=== PATIENT | female | born 1980 | race American Indian/Alaskan Native ===

== ENCOUNTER 2016-12-01 09:43 | Emergency (ER) | payer SELFPAY ==
[2016-12-01 09:47] VITALS: BP 135/86; PULSE 83; TEMP 98; O2SAT 99; BMI 44.2
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
== END 2016-12-01 12:04 | disposition home or self-care (01) ==
LOC: H.ER 09:43
DX: J02.9 Acute pharyngitis, unspecified (principal)

== ENCOUNTER 2016-12-18 23:27 | Emergency (ER) | payer OTHER ==
[2016-12-18 23:28] VITALS: BMI 44.2
[2016-12-18 23:48] VITALS: BP 138/67; PULSE 76; RESP 18; TEMP 98.1; O2SAT 98
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
== END 2016-12-19 00:50 | disposition home or self-care (01) ==
LOC: H.ER 23:27
DX: M54.9 Dorsalgia, unspecified (principal); V43.62XA Car passenger injured in collision with other type car in traffic accident, initial encounter; V88.6XXA Person injured in collision between railway train or railway vehicle and car, nontraffic, initial encounter

== ENCOUNTER 2017-10-19 10:40 | Emergency (ER) | payer MEDICAID, OTHER ==
[2017-10-19 10:58] VITALS: BP 123/77; PULSE 82; RESP 20; TEMP 98.5; O2SAT 100; BMI 43.5
--- NOTE | 2017-10-19 12:07 | ED PDOC ---
Lower Extremity Pain/Injury Time Seen by Provider: 10/19/17 11:37 Chief Complaint (Nursing): Lower Extremity Problem/Injury Chief Complaint (Provider): Left ankle pain History Per: Patient History/Exam Limitations: no limitations Onset/Duration Of Symptoms: Days (x1) Current Symptoms Are (Timing): Still Present Additional Complaint(s): Angela Guadarrama is a 36 year old female, with no significant past medical history, who presents to the emergency department complaining of left ankle pain onset since yesterday. Patient reports she twisted her left ankle while skating. She was able to ambulate with pain. She denies any other injuries or medical complaints. PMD: None provided. - Ankle/Foot Description Of Injury: Twisted Past Medical History Reviewed: Historical Data, Nursing Documentation, Vital Signs Vital Signs: Last Vital Signs Temp 98.5 F 10/19/17 10:49 Pulse 82 10/19/17 10:49 Resp 20 10/19/17 10:49 BP 123/77 10/19/17 10:49 Pulse Ox 100 10/19/17 10:49 - Medical History PMH: No Chronic Diseases Denies: Chronic Kidney Disease - Surgical History Surgical History: No Surg Hx - Family History Family History: States: No Known Family Hx - Immunization History Hx Tetanus Toxoid Vaccination: No Hx Influenza Vaccination: No Hx Pneumococcal Vaccination: No - Home Medications Home Medications: Ambulatory Orders Medication Instructions Recorded Amoxicillin [Amoxil 500 mg Cap] 500 mg PO BID #20 cap 12/01/16 Benzonatate [Tessalon Perles] 100 mg PO BID #20 sgl 12/01/16 Naproxen [Naprosyn] 500 mg PO BID PRN #15 tablet 10/19/17 - Allergies Allergies/Adverse Reactions: Allergies Allergy/AdvReac Type Severity Reaction Status Date / Time No Known Allergies Allergy Verified 05/02/14 13:44 Review of Systems ROS Statement: Except As Marked, All Systems Reviewed And Found Negative Musculoskeletal: Positive for: Foot Pain (left ankle) Physical Exam - Reviewed Nursing Documentation Reviewed: Yes Vital Signs Reviewed: Yes - Physical Exam Appears: Positive for: Well, Non-toxic, No Acute Distress Head Exam: Positive for: ATRAUMATIC, NORMOCEPHALIC Skin: Positive for: Normal Color, Warm, Dry Eye Exam: Positive for: Normal appearance Neck: Positive for: Painless ROM Respiratory: Negative for: Respiratory Distress Pulses-Dorsalis Pedis (L): 2+ Pulses-Dorsalis Pedis (R): 2+ Extremity: Positive for: Normal ROM (Lower extremities), Tenderness (to lateral and medial malleolus. Positive edema, sensation intact). Negative for: Deformity (No obvious deformity to left ankle) Neurologic/Psych: Positive for: Alert, Oriented. Negative for: Motor/Sensory Deficits - ECG O2 Sat by Pulse Oximetry: 100 (RA) Pulse Ox Interpretation: Normal Medical Decision Making Medical Decision Making: Initial Impression: Left ankle injury Initial Plan: --Urine --Tylenol 325mg tab 650 mg PO --Motrin tab 600 mg PO --Ankle left 3 views routine [RAD] --Foot left 3 views routine [RAD] --Reevaluation Accession No. : [id number] Patient Name / ID : JULIAN YUN / [id number] Exam Date : 10/19/2017 12:05:37 ( Approved ) Study Comment : Sex / Age : F / 36Y Creator : Phillip Mcnamara MD Dictator : Phillip Mcnamara MD Change Lead : Flame Hardening Machine Setter : Phillip Mcnamara MD Approver2 : Report Date : 10/19/2017 15:18:44 My Comment : PROCEDURE: Left Ankle Radiographs. HISTORY: Twisting injury COMPARISON: 07/01/2010 right ankle radiographs FINDINGS: BONES: Normal. No fracture. JOINTS: Normal. No osteoarthritis. Ankle mortise maintained. Talar dome intact SOFT TISSUES: Normal. OTHER FINDINGS: None. IMPRESSION: No acute findings related to/accounting for the clinical presentation. No significant interval change compared to the prior examination(s). Accession No. : [id number] Patient Name / ID : JULIAN YUN / [id number] Exam Date : 10/19/2017 12:09:26 ( Approved ) Study Comment : Sex / Age : F / 36Y Creator : Phillip Mcnamara MD Dictator : Phillip Mcnamara MD Change Lead : Flame Hardening Machine Setter : Phillip Mcnamara MD Approver2 : Report Date : 10/19/2017 16:57:39 My Comment : PROCEDURE: Left Foot Radiographs. HISTORY: Twisting injury COMPARISON: None. FINDINGS: BONES: Normal. No fracture. JOINTS: Normal. SOFT TISSUES: Normal. OTHER FINDINGS: None. IMPRESSION: No acute findings related to/accounting for the clinical presentation. Scribe Attestation: Documented by Jaret Evans, acting as a scribe for Suzie Bonilla MD Provider Scribe Attestation: All medical record entries made by the Scribe were at my direction and personally dictated by me. I have reviewed the chart and agree that the record accurately reflects my personal performance of the history, physical exam, medical decision making, and the department course for this patient. I have also personally directed, reviewed, and agree with the discharge instructions and disposition. Disposition - Clinical Impression Clinical Impression: Ankle sprain - Disposition Referrals: [facility] [[facility]] Disposition: Routine/Home Disposition Time: 14:35 Condition: STABLE Prescriptions: Naproxen [Naprosyn] 500 mg PO BID PRN #15 tablet PRN Reason: Pain, Moderate (4-7) Instructions: Ankle Sprain, How to Use Crutches Forms: [facility] (H[place]er), [facility] ED School/Work Excuse
--- NOTE | 2017-10-19 15:20 | RAD ---
PROCEDURE: Left Ankle Radiographs. HISTORY: Twisting injury COMPARISON: 07/01/2010 right ankle radiographs FINDINGS: BONES: Normal. No fracture. JOINTS: Normal. No osteoarthritis. Ankle mortise maintained. Talar dome intact SOFT TISSUES: Normal. OTHER FINDINGS: None. IMPRESSION: No acute findings related to/accounting for the clinical presentation. No significant interval change compared to the prior examination(s). Concordant results with the preliminary interpretation rendered by the emergency department physician procedure.
--- NOTE | 2017-10-19 16:59 | RAD ---
PROCEDURE: Left Foot Radiographs. HISTORY: Twisting injury COMPARISON: None. FINDINGS: BONES: Normal. No fracture. JOINTS: Normal. SOFT TISSUES: Normal. OTHER FINDINGS: None. IMPRESSION: No acute findings related to/accounting for the clinical presentation. Concordant results with the preliminary interpretation rendered by the emergency department physician procedure.
== END 2017-10-19 14:54 | disposition home or self-care (01) ==
LOC: H.ER 10:40
DX: S93.402A Sprain of unspecified ligament of left ankle, initial encounter (principal); X50.1XXA Overexertion from prolonged static or awkward postures, initial encounter; Y93.59 Activity, other involving other sports and athletics played individually

== ENCOUNTER 2017-12-10 19:31 | Emergency (ER) | payer MEDICAID ==
[2017-12-10 19:31] VITALS: BMI 43.5
[2017-12-10 19:39] VITALS: TEMP 99.5; O2SAT 97
[2017-12-10] MEDS ORDERED: Tdap Vaccine 0.5 ml Vial (10-64 yrs) IM ONE (20:35)
[2017-12-10] MEDS ORDERED: PROPARACAINE/FLUORESCEIN SOD 100 DROP/5 ML BOTTLE OS STA (20:35)
[2017-12-10] MEDS ORDERED: PROPARACAINE/FLUORESCEIN SOD 100 DROP/5 ML BOTTLE ONE (21:13)
[2017-12-10] MEDS ORDERED: Tobramycin 0.3% OPHT SOLN OS STA (21:17)
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
[2017-12-10 21:58] VITALS: BP 142/68; PULSE 86; RESP 16
== END 2017-12-10 21:59 | disposition home or self-care (01) ==
LOC: H.ER 19:31
DX: S05.02XA Injury of conjunctiva and corneal abrasion without foreign body, left eye, initial encounter (principal); Y04.0XXA Assault by unarmed brawl or fight, initial encounter; Y92.89 Other specified places as the place of occurrence of the external cause

== ENCOUNTER 2018-11-06 02:28 | Emergency (ER) | payer MEDICAID ==
[2018-11-06 02:29] VITALS: BMI 43.5
[2018-11-06 02:55] VITALS: BP 187/108; PULSE 75; RESP 16; TEMP 98; O2SAT 98
--- NOTE | 2018-11-06 03:07 | ED PDOC ---
HPI: Dental Pain/Injury Time Seen by Provider: 11/06/18 03:00 Chief Complaint (Nursing): Dental Pain Chief Complaint (Provider): GUM PAIN History Per: Patient (37 Y/O FEMALE WHO NOTES GUM TENDERNESS UPPER AND LOWER TODAY NOT RELIEVED BY TYLENOL/MOTRIN. DENIES ANY FEVERS/CHILLS.) Past Medical History Reviewed: Historical Data, Nursing Documentation, Vital Signs Vital Signs: Last Vital Signs Temp 98 F 11/06/18 02:53 Pulse 75 11/06/18 02:53 Resp 16 11/06/18 02:53 BP 187/108 H 11/06/18 02:53 Pulse Ox 98 11/06/18 02:53 Primary Care Provider: FAMILY PROVIDER,NO - Medical History PMH: Denies: Chronic Kidney Disease - Family History Family History: States: Unknown Family Hx - Immunization History Hx Tetanus Toxoid Vaccination: No (unknown) Hx Influenza Vaccination: No Hx Pneumococcal Vaccination: No - Home Medications Home Medications: Ambulatory Orders Medication Instructions Recorded Amoxicillin [Amoxil 500 mg Cap] 500 mg PO BID #20 cap 12/01/16 Benzonatate [Tessalon Perles] 100 mg PO BID #20 sgl 12/01/16 Naproxen [Naprosyn] 500 mg PO BID PRN #15 tablet 10/19/17 Tobramycin 0.3% [Tobrex 0.3% Ophth 2 drop OS Q6 #1 bottle 12/10/17 Soln] Chlorhexidine Gluconate [Peridex] 5 ml MM QID #1 bottle 11/06/18 - Allergies Allergies/Adverse Reactions: Allergies Allergy/AdvReac Type Severity Reaction Status Date / Time No Known Allergies Allergy Verified 11/06/18 02:53 Review of Systems ROS Statement: Except As Marked, All Systems Reviewed And Found Negative ENT: Positive for: Mouth Pain Physical Exam - Reviewed Nursing Documentation Reviewed: Yes Vital Signs Reviewed: Yes - Physical Exam Appears: Positive for: Well, Non-toxic, No Acute Distress Head Exam: Positive for: ATRAUMATIC, NORMAL INSPECTION, NORMOCEPHALIC Skin: Positive for: Normal Color, Warm, DRY Eye Exam: Positive for: EOMI, Normal appearance, PERRL ENT: Positive for: Normal ENT Inspection Neck: Positive for: Normal, Painless ROM Cardiovascular/Chest: Positive for: Regular Rate, Rhythm Respiratory: Positive for: CNT, Normal Breath Sounds Gastrointestinal/Abdominal: Positive for: Normal Exam, Soft Back: Positive for: Normal Inspection Extremity: Positive for: Normal ROM Neurological/Psych: Positive for: Awake, Alert, Normal Tone - ECG O2 Sat by Pulse Oximetry: 98 - Progress ED Course And Treament: TRAMADOL 50 MG X 1 DOSE Disposition - Clinical Impression Clinical Impression: Gingivitis - Patient ED Disposition Is Patient to be Admitted: No - Disposition Referrals: Julian Og DDS [Staff Provider] - Disposition: Routine/Home Disposition Time: 03:05 Condition: STABLE Prescriptions: Chlorhexidine Gluconate [Peridex] 5 ml MM QID #1 bottle Instructions: Gingivitis (DC)
== END 2018-11-06 03:08 | disposition home or self-care (01) ==
LOC: H.ER 02:28
DX: K05.00 Acute gingivitis, plaque induced (principal)